=== PATIENT | female | born 1955 | race Caucasian/White ===

== ENCOUNTER 2021-07-18 10:12 | Emergency (ER) | payer OTHER ==
--- OUTSIDE RECORDS SUMMARY | 2021-07-18 10:15 | XMS REPORT | Continuity of Care Document ---
:1955 Author Organization [facility] t Address [facility] [address] [place] [address] Care Team Providers Name Role Phone JAVI Attending Clinician Unavailable MD WANDA CALDWELL Attending Clinician Unavailable JAVI Admitting Clinician Unavailable MD WANDA CALDWELL Admitting Clinician Unavailable Problems This patient has no known problems. Allergies, Adverse Reactions, Alerts This patient has no known allergies or adverse reactions. Medications This patient has no known medications. Procedures This patient has no known procedures. Encounters Start End Encounter Admission Attending Care Care Encounter Source Date/Time Date/Time Type Type Clinicians Facility Department ID 2020-07-20 2020-07-20 Outpatient [facility] [id number] [place] 00:00:00 00:00:00 TL [address] 2020-06-03 2020-06-03 Outpatient [facility] [id number] [place] 00:00:00 00:00:00 TL [address] 2020-06-01 2020-06-01 Outpatient [facility] [id number] [place] 00:00:00 00:00:00 TL [address] 2020-06-01 2020-06-01 Outpatient [facility] [id number] [place] 00:00:00 00:00:00 TL [address] 2020-05-19 2020-05-19 Outpatient [facility] [id number] [place] 00:00:00 00:00:00 TL [address] 2020-05-19 2020-05-19 Outpatient [facility] [id number] [place] 00:00:00 00:00:[address] Results Test Description Test Time Test Comments Results Result Comments Source SARS-CoV-2 (COVID-19) RNA [Presence] in Respiratory sp ecimen by 2020-06-01 22:55:03 AMRITA with probe detection Test Item Value Reference Range Interpretation Comme nts SARS-CoV-2 (COVID-19) RNA [Presence] in Respiratory Not detected No t-Detected specimen by AMRITA with probe detection (test code = 54583-5)
[2021-07-18] MEDS ORDERED: NA CHLORIDE 0.9% 1,000 ML ONE (11:57)
[2021-07-18] MEDS ORDERED: METHYLPREDNISOLONE 125 MG INJ ONE (11:57)
[2021-07-18] MEDS ORDERED: ACETAMINOPHEN 325 MG TABLET ONE (11:57)
[2021-07-18 12:14] LABS: Absolute Lymphocytes (CBC) 0.7 K/uL (0.7-4.9); Lymphocytes % 24.8 % (15.3-44.8); MPV 7.3 fL (7.6-11.3); RBC Red Blood Cell Count 5.05 M/uL (3.86-4.86)
--- NOTE | 2021-07-18 12:23 | RAD REPORT ---
EXAM DESCRIPTION: RAD - Chest Single View - 07/18/2021 12:18 pm CLINICAL HISTORY: Cough;Dyspnea COMPARISON: CHEST SINGLE VIEW dated 12/10/2014; CHEST PA AND LAT 2 VIEW dated 10/24/2013 FINDINGS: Lines: None. Lungs: Patchy airspace disease bilaterally, left greater than right. Pleural: No significant pleural effusions or pneumothorax. Cardiac: The heart size is within normal limits. Bones: No acute fractures. Other: IMPRESSION: Patchy bilateral airspace disease concerning for multifocal pneumonia, including Covid-1 9.
[2021-07-18 12:42] LABS: BUN Blood Urea Nitrogen 12 mg/dL (7-18); Bicarbonate 30 mmol/L (21-32); Ferritin 216.7 ng/mL (8-388); Glucose Level 94 mg/dL (74-106); Potassium 3.4 mmol/L (3.5-5.1); Sodium Level 137 mmol/L (136-145); Troponin (Emerg Dept Use Only) < 0.02 ng/mL (0.0-0.045)
[2021-07-18 13:43] LABS: Blood Morphology Comment NOT SEEN (NOT SEEN); Platelet Estimate ADEQ
[2021-07-18 13:44] LABS: Urine Blood Negative (Negative); Urine Glucose Negative (Negative); Urine Protein Negative (Negative); Urine Specific Gravity 1.015 (1.005-1.030)
--- NOTE | 2021-07-18 14:17 | EDPHYS ---
Physician Documentation [facility] Name: Hayley Landon Age: 66 yrs Sex: Female : 1955 Arrival Date: 07/18/2021 Time: 10:14 Bed 6 Private MD: Nestor Mcclellan T ED Physician Pablo Mcnally HPI: 07/18 11:26 This 66 yrs old Female presents to ER via Ambulatory with complaints of Shortness Of rn Breath - covid+. 11:26 The patient has shortness of breath at rest, with light activity. Onset: The rn symptoms/episode began/occurred 10 day(s) ago. Duration: The symptoms are intermittent. The patient's shortness of breath is aggravated by exertion, light activity. Associated signs and symptoms: Pertinent positives: productive cough, fever, Pertinent negatives: hemoptysis. Severity of symptoms: At their worst the symptoms were moderate in the emergency department the symptoms are unchanged. The patient has not experienced similar symptoms in the past. The patient has been recently seen by a physician:. Patient reports cough and shortness of breath for 10 days. Is Covid positive. Not Covid vaccinated. Reports mild shortness of breath with weakness and malaise. Also having diarrhea that is nonbloody. No history of DVT or PE.. Historical: - Allergies: 11:08 PENICILLINS; ll1 11:08 c cor; ll1 - PMHx: 11:08 Hypertension; ll1 - PSHx: 11:08 back SX-fusion; ll1 - Immunization history:: Client reports receiving the 2nd dose of the Covid vaccine. - Social history:: Smoking status: Patient denies any tobacco usage or history of. - Family history:: not pertinent. - Hospitalizations: : No recent hospitalization is reported. ROS: 11:26 Constitutional: Positive for fever and chills, positive for weight loss Eyes: Negative rn for injury, pain, redness, and discharge, ENT: Negative for injury, pain Neck: Negative for injury, pain, and swelling, Cardiovascular: Negative for chest pain, palpitations, and edema, Respiratory: Positive for cough and shortness of breath Abdomen/GI: Positive for diarrhea, negative for abdominal pain MS/Extremity: Negative for injury and deformity, Skin: Negative for injury, rash, and discoloration, Neuro: Positive for headache and generalized weakness Exam: 11:28 Constitutional: This is a well developed, well nourished patient who is awake, alert, rn and in no acute distress. Head/Face: Normocephalic, atraumatic. Eyes: Periorbital areas with no swelling, redness, or edema. ENT: No stridor Cardiovascular: Regular rate and rhythm. No pulse deficits. Respiratory: Speaking full sentences, unlabored. No increased work of breathing, no retractions or nasal flaring. Abdomen/GI: Soft, non-tender Skin: Warm, dry MS/ Extremity: Pulses equal, no cyanosis. Neurovascular intact. Full, normal range of motion. Equal circumference. Neuro: Awake and alert, GCS 15 12:18 ECG was reviewed by the Attending Physician. rn Vital Signs: 11:06 BP 190 / 85; Pulse 85; Resp 18; Temp 100.5; Pulse Ox 97% ; Weight 61.69 kg; Height 5 ll1 ft. 2 in. (157.48 cm); Pain 0/10; 12:24 BP 163 / 76; Pulse 86; Resp 17; Pulse Ox 99% on R/A; bp 13:28 BP 163 / 76; Pulse 82; Resp 23; Pulse Ox 94% on R/A; bp 15:15 BP 177 / 75; Pulse 80; Resp 18; Temp 98.6(O); Pulse Ox 99% on R/A; Pain 0/10; jh6 11:06 Body Mass Index 24.87 (61.69 kg, 157.48 cm) ll1 MDM: 11:10 Patient medically screened. rn 14:14 Differential diagnosis: Bronchitis pneumonia, Pneumothorax pulmonary edema, Pulmonary rn Embolism Sepsis covid. Data reviewed: vital signs, nurses notes, lab test result(s), EKG, radiologic studies, plain films, and as a result, I will discharge patient. Data interpreted: Pulse oximetry: on room air is 94 %. Interpretation: acceptable. Counseling: I had a detailed discussion with the patient and/or guardian regarding: the historical points, exam findings, and any diagnostic results supporting the discharge/admit diagnosis, lab results, radiology results, the need for outpatient follow up, to return to the emergency department if symptoms worsen or persist or if there are any questions or concerns that arise at home. Response to treatment: the patient's symptoms have mildly improved after treatment, and as a result, I will discharge patient. Special discussion: I discussed with the patient/guardian in detail that at this point there is no indication for admission to the hospital. It is understood, however, that if the symptoms persist or worsen the patient needs to return immediately for re-evaluation. ED course: No oxygen requirement here, ambulatory to bathroom without dififculty, no indication for emergent admission, will dc home with steroids and zithromax with return precautions. Recommend Vitamin D and NAC. . 07/18 11:22 Order name: BMP rn 07/18 11:22 Order name: Blood Culture Adult (2) rn 07/18 11:22 Order name: C-Reactive Protein rn 07/18 11:22 Order name: CBC with Diff; Complete Time: 14:00 rn 07/18 11:22 Order name: D-Dimer; Complete Time: 12:43 rn 07/18 11:22 Order name: Ferritin rn 07/18 11:22 Order name: Flu rn 07/18 11:22 Order name: Lactate; Complete Time: 12:43 rn 07/18 11:22 Order name: Procalcitonin; Complete Time: 13:25 rn 07/18 11:22 Order name: Troponin (emerg Dept Use Only); Complete Time: 12:43 rn 07/18 11:23 Order name: Basic Metabolic Panel; Complete Time: 12:43 EDMS 07/18 11:23 Order name: C-Reactive Protein; Complete Time: 12:43 EDMS 07/18 11:23 Order name: Ferritin; Complete Time: 12:43 EDMS 07/18 13:42 Order name: Manual Differential; Complete Time: 14:00 EDOH 07/18 11:22 Order name: CXR XRAY; Complete Time: 12:43 rn 07/18 11:22 Order name: EKG; Complete Time: 11:23 rn 07/18 11:22 Order name: Cardiac monitoring; Complete Time: 11:52 rn 07/18 11:22 Order name: Droplet/Contact Precautions; Complete Time: 11:52 rn 07/18 11:22 Order name: EKG - Nurse/Tech; Complete Time: 12:23 rn 07/18 11:22 Order name: IV Start; Complete Time: 12:23 rn 07/18 11:22 Order name: Labs collected and sent; Complete Time: 12:23 rn 07/18 11:22 Order name: O2 Per Protocol; Complete Time: 11:52 rn 07/18 11:22 Order name: O2 Sat Monitoring; Complete Time: 11:52 rn 07/18 11:22 Order name: Urine Dipstick-Ancillary (obtain specimen); Complete Time: 13:58 rn 07/18 13:44 Order name: Urine Dipstick-Ancillary; Complete Time: 14:00 EDMS EC:18 Rate is 80 beats/min. Rhythm is irregular. QRS [place] is Normal. AL interval is normal. rn QRS interval is normal. QT interval is normal. No Q waves. T waves are Normal. No ST changes noted. Clinical impression: NSR w/ Non-specific ST/T Changes. Interpreted by me. Reviewed by me. Administered Medications: 12:00 Drug: SOLU-Medrol (methylPrednisoLONE) 125 mg Route: IVP; Site: right antecubital; bp 12:30 Follow up: Response: No adverse reaction 6 12:00 Drug: NS 0.9% 1000 ml Route: IV; Rate: 1000 ml; Site: right antecubital; bp 15:00 Follow up: IV Status: Completed infusion 6 12:00 Drug: Tylenol 650 mg Route: PO; bp 12:30 Follow up: Response: No adverse reaction [facility] Disposition Summary: 07/18/21 14:16 Discharge Ordered Location: Home rn Problem: an ongoing problem rn Symptoms: have improved rn Condition: Stable rn Diagnosis - Pneumonia due to SARS-associated coronavirus rn - Dehydration rn Followup: rn - With: Private Physician - When: As needed - Reason: Recheck today's complaints, Re-evaluation by your physician Discharge Instructions: - Discharge Summary Sheet rn - Dehydration, Adult rn - COVID-19 rn - COVID-19 Frequently Asked Questions rn - 10 Things You Can Do to Manage Your COVID-19 Symptoms at Home - [facility] rn Forms: - Medication Reconciliation Form rn - Thank You Letter rn - Antibiotic 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 Day 2, 3, 4 , 5 take one (1) tablet once daily.; 6 tablet; Refills: 0, Product Selection Permitted Signatures: Dispatcher [employer] EDOH Pablo Mcnally MD MD rn Peltier, Rakesh RN RN Brittany Stewart RN RN 1 Mila Sanchez RN jh6 Corrections: (The following items were deleted from the chart) 11:30 11:28 Constitutional: This is a well developed, well nourished patient who is awake, rn alert, and in no acute distress. Head/Face: Normocephalic, atraumatic. Eyes: Periorbital areas with no swelling, redness, or edema. ENT: No stridor rn 11:35 10:52 Chest Pa And Lat (2 Views)+RAD.[email or web address].[email or web address] ordered. EDMS EDMS 13:29 11:22 Bharat ordered. jose bp
--- NOTE | 2021-07-18 14:17 | ER ---
Nurse's Notes [facility] Name: Hayley Landon Age: 66 yrs Sex: Female : 1955 Arrival Date: 07/18/2021 Time: 10:14 Bed 6 Private MD: Nestor Mcclellan T Diagnosis: Pneumonia due to SARS-associated coronavirus;Dehydration Presentation: 07/18 11:06 Chief complaint: Patient states: Has had covid for 10 days. Oxygen 81% last night, ll1 resolved with meds and repositioning. Coronavirus screen: Vaccine status: Patient reports being unvaccinated. Client denies travel out of the [place] in the last 14 days. congestion, cough unrelated to allergies, difficulty breathing, fatigue, fever, headache, loss of taste or smell, Client presents with at least one sign or symptom that may indicate coronavirus-19. Standard/surgical mask placed on the client. Ebola Screen: Patient denies travel to an Ebola-affected area in the 21 days before illness onset. Initial Sepsis Screen: Does the patient meet any 2 criteria? No. Patient's initial sepsis screen is negative. Does the patient have a suspected source of infection? Yes: Productive cough/pneumonia. Risk Assessment: Do you want to hurt yourself or someone else? Patient reports no desire to harm self or others. Onset of symptoms was July 09, 2021. 11:06 Method Of Arrival: Ambulatory [facility] 11:06 Acuity: OCTAVIA 3 ll1 Triage Assessment: 15:17 General: Appears. jh6 15:17 General: Appears in no apparent distress. comfortable, well groomed, Behavior is calm, jh6 cooperative. Pain: Denies pain. Neuro: No deficits noted. Respiratory: No deficits noted. Reports cough that is non-productive, dry, Airway is patent Trachea midline Respiratory effort is even, unlabored, relaxed, Respiratory pattern is regular, Onset: The symptoms/episode began/occurred gradually, the patient has moderate shortness of breath. Historical: - Allergies: 11:08 PENICILLINS; ll1 11:08 c cor; ll1 - PMHx: 11:08 Hypertension; ll1 - PSHx: 11:08 back SX-fusion; ll1 - Immunization history:: Client reports receiving the 2nd dose of the Covid vaccine. - Social history:: Smoking status: Patient denies any tobacco usage or history of. - Family history:: not pertinent. - Hospitalizations: : No recent hospitalization is reported. Screenin:23 Abuse screen: Denies threats or abuse. Denies injuries from another. Nutritional bp screening: No deficits noted. Tuberculosis screening: No symptoms or risk factors identified. Fall Risk None identified. Assessment: 11:10 General: SEE TRIAGE NOTE. Pain: Denies pain. Cardiovascular: Rhythm is sinus rhythm. bp Respiratory: Airway is patent Respiratory effort is even, unlabored, Breath sounds are coarse. 13:29 Reassessment: No changes from previously documented assessment. Patient and/or family bp updated on plan of care and expected duration. Pain level reassessed. Vital Signs: 11:06 BP 190 / 85; Pulse 85; Resp 18; Temp 100.5; Pulse Ox 97% ; Weight 61.69 kg; Height 5 ll1 ft. 2 in. (157.48 cm); Pain 0/10; 12:24 BP 163 / 76; Pulse 86; Resp 17; Pulse Ox 99% on R/A; bp 13:28 BP 163 / 76; Pulse 82; Resp 23; Pulse Ox 94% on R/A; bp 15:15 BP 177 / 75; Pulse 80; Resp 18; Temp 98.6(O); Pulse Ox 99% on R/A; Pain 0/10; jh6 11:06 Body Mass Index 24.87 (61.69 kg, 157.48 cm) ll1 ED Course: 10:14 Patient arrived in ED. as 10:14 Nestor Mcclellan MD is Private Physician. as 11:08 Triage completed. ll1 11:09 Arm band placed on. ll1 11:10 Pablo Mcnally MD is Attending Physician. rn 11:10 Patient placed in an exam room, on a stretcher. ll1 11:26 Rakesh Alcantar, ISABELLA is Primary Nurse. bp 12:00 Inserted saline lock: 20 gauge in right antecubital area, using aseptic technique. bp Blood collected. 12:18 CXR XRAY In Process Unspecified. EDMS 12:23 Patient has correct armband on for positive identification. Bed in low position. Call bp light in reach. Side rails up X2. Adult w/ patient. 15:15 IV discontinued, intact, bleeding controlled, No redness/swelling at site. Pressure jh6 dressing applied. 15:16 No provider procedures requiring assistance completed. 6 Administered Medications: 12:00 Drug: SOLU-Medrol (methylPrednisoLONE) 125 mg Route: IVP; Site: right antecubital; bp 12:30 Follow up: Response: No adverse reaction [facility] 12:00 Drug: NS 0.9% 1000 ml Route: IV; Rate: 1000 ml; Site: right antecubital; bp 15:00 Follow up: IV Status: Completed infusion 6 12:00 Drug: Tylenol 650 mg Route: PO; bp 12:30 Follow up: Response: No adverse reaction [facility] Outcome: 14:16 Discharge ordered by . rn 15:16 Discharged to home ambulatory. [facility] 15:16 Condition: improved 15:16 Discharge instructions given to patient, significant other, Instructed on discharge instructions, follow up and referral plans. Demonstrated understanding of instructions, follow-up care, medications, Prescriptions given X 2. 15:20 Patient left the ED. 6 Signatures: Dispatcher [employer] EDMS Gabriella Abraham Roman, MD MD rn Peltier, Brian, RN RN Brittany Stewart RN RN [facility] Mila Sanchez RN RN 6
[2021-07-18 15:31] VITALS: BP 177/75; TEMP 98.6; O2SAT 99
[2021-07-18] MEDS ORDERED: FUROSEMIDE 40 MG/4 ML VIAL ONE (16:51)
--- NOTE | 2021-07-19 11:26 | EKG ---
Test Date: 2021-07-18 Test Time: 12:14:31 Breast Splitter: BP MEASUREMENT RESULTS: Intervals: Rate: 80 AK: 130 QRSD: 88 QT: 364 QTc: 419 [place]: P: 5 AK: 130 QRS: 31 T: 39 INTERPRETIVE STATEMENTS: Sinus rhythm with premature supraventricular complexes Nonspecific ST abnormality Abnormal ECG Compared to ECG 08/16/2017 11:23:26 Atrial premature complex(es) now present ST (T wave) deviation now present Electronically Signed On 07-19-21 11:23:34 RULES EXAMINER by Alfonso Weiss
== END 2021-07-18 15:20 | disposition home or self-care (01) ==
LOC: ER 10:12
DX: U07.1 COVID-19 (principal); J12.82 Pneumonia due to coronavirus disease 2019; I10 Essential (primary) hypertension; Z88.0 Allergy status to penicillin; Z88.8 Allergy status to other drugs, medicaments and biological substances
CPT/HCPCS: 96361; 93005; 87040 ×2; 85025; 80048; 36415; 85379; 83605; 81003; 84484; 82728; 84145; 86140; 87804 ×2; 71045; 96374; 99284; J1940; J7030; J2930

== ENCOUNTER 2021-08-19 07:33 | Emergency (ER) | payer OTHER ==
--- OUTSIDE RECORDS SUMMARY | 2021-08-19 07:35 | XMS REPORT | Continuity of Care Document ---
:1955 [address] [facility] t Address [facility] [address] [place] [address] Care Team Providers Name Role Phone JAVI Attending Clinician Unavailable MD WANDA CALDWELL Attending Clinician Unavailable JAVI Admitting Clinician Unavailable MD WANAD CALDWELL Admitting Clinician Unavailable Problems This patient has no known problems. Allergies, Adverse Reactions, Alerts This patient has no known allergies or adverse reactions. Medications This patient has no known medications. Procedures This patient has no known procedures. Encounters Start End Encounter Admission Attending Care Care Encounter Source Date/Time Date/Time Type Type Clinicians Facility Department ID 2020-07-20 2020-07-20 Outpatient [facility] [id number] [place] 00:00:00 00:00:00 TL [address] 2020-06-03 2020-06-03 Outpatient [facility] [id number] [place] 00:00:00 00:00:00 TL [address] 2020-06-01 2020-06-01 Outpatient [facility] [id number] [place] 00:00:00 00:00:00 TL [address] 2020-06-01 2020-06-01 Outpatient [facility] [id number] [place] 00:00:00 00:00:00 TL [address] 2020-05-19 2020-05-19 Outpatient [facility] [id number] [id number] [place] 00:00:00 00:00:00 TL [address] 2020-05-19 2020-05-19 Outpatient [facility] [id number] [place] 00:00:00 00:00:00 TL [address] Results Test Description Test Time Test Comments Results Result Comments Source SARS-CoV-2 (COVID-19) RNA [Presence] in Respiratory sp ecimen by 2020-06-01 22:55:03 AMRITA with probe detection Test Item Value Reference Range Interpretation Comme nts SARS-CoV-2 (COVID-19) RNA [Presence] in Respiratory Not detected No t-Detected specimen by AMRITA with probe detection (test code = 08406-3)
[2021-08-19] MEDS ORDERED: METHYLPREDNISOLONE 125 MG INJ ONE (07:46)
[2021-08-19] MEDS ORDERED: FAMOTIDINE 20 MG TAB ONE (07:46)
--- NOTE | 2021-08-19 08:01 | EDPHYS ---
Physician Documentation [facility] Name: Hayley Landon Age: 66 yrs Sex: Female : 1955 Arrival Date: 08/19/2021 Time: 07:34 Bed Waiting Private MD: Nestor Mcclellan T ED Physician Pablo Mcnally HPI: 08/19 07:45 This 66 yrs old Female presents to ER via Ambulatory with complaints of Allergic kb Reaction. 07:45 The patient presents with itching. Onset: The symptoms/episode began/occurred 5 day(s) kb ago. Associated signs and symptoms: Pertinent positives: rash. Possible causes: shellfish. At home the patient or guardian has treated the symptoms with Benadryl, steroids. Severity of symptoms: At their worst the symptoms were moderate in the emergency department the symptoms are unchanged. The patient has not experienced similar symptoms in the past. The patient has not recently seen a physician. Pt reports she ate fish on Saturday, had hives on Saturday. Was seen by Dr Mcclellan on Saturday for another issue and was prescribed Decadron for the hives. States she has been on decadron before and it irritated her stomach. States she ate a shrimp on Saturday night and developed swelling to her lips that resolved with benadryl. States the decadron is upsetting her stomach so she called Dr Mcclellan's office yesterday to get it changed to prednisone, but she did not get a response from him because he was out of the office. . Historical: - Allergies: 07:40 PENICILLINS; [facility] 07:40 c cor; 5 - PMHx: 07:40 Hypertension; [facility] - PSHx: 07:40 back SX-fusion; [facility] - Immunization history:: Adult Immunizations up to date. - Social history:: Smoking status: Patient denies any tobacco usage or history of. ROS: 07:44 Constitutional: Negative for fever, chills, and weight loss. kb 07:44 Skin: Positive for rash, diffusely. 07:44 All other systems are negative. Exam: 07:44 Constitutional: This is a well developed, well nourished patient who is awake, alert, kb and in no acute distress. Head/Face: Normocephalic, atraumatic. ENT: Moist Mucous membranes Cardiovascular: Regular rate and rhythm with a normal S1 and S2. No gallops, murmurs, or rubs. No pulse deficits. Respiratory: Respirations even and unlabored. No increased work of breathing. Talking in full sentences MS/ Extremity: Pulses equal, no cyanosis. Neurovascular intact. Full, normal range of motion. Neuro: Awake and alert, GCS 15, oriented to person, place, time, and situation. Moves all extremities. Normal gait. Psych: Awake, alert, with orientation to person, place and time. Behavior, mood, and affect are within normal limits. 07:44 Skin: consistent with dermatitis. Vital Signs: 07:37 BP 173 / 95; Pulse 114; Resp 18; Temp 98.9; Pulse Ox 95% ; Weight 60.78 kg; Height 5 jh5 ft. 4 in. (162.56 cm); 07:37 Body Mass Index 23.00 (60.78 kg, 162.56 cm) 5 MDM: 07:44 Patient medically screened. 07:44 Data reviewed: vital signs, nurses notes. Data interpreted: Pulse oximetry: on room air kb is 95 %. Interpretation: normal. Counseling: I had a detailed discussion with the patient and/or guardian regarding: the historical points, exam findings, and any diagnostic results supporting the discharge/admit diagnosis, the need for outpatient follow up, a family practitioner, to return to the emergency department if symptoms worsen or persist or if there are any questions or concerns that arise at home. Administered Medications: 07:49 Drug: SOLU-Medrol (methylPREDNISolone sodium succinate) 125 mg Route: IM; Site: right [facility] gluteus; 07:50 Drug: Pepcid (famotidine) 20 mg Route: PO; [facility] Disposition: 09:36 Co-signature as Attending Physician, Pablo Mcnally MD. rn Disposition Summary: 08/19/21 08:00 Discharge Ordered Location: Home Condition: Stable Problem: new tw5 Symptoms: have improved tw5 Diagnosis - Rash and other nonspecific skin eruption kb Followup: kb - With: Emergency Department - When: As needed - Reason: Worsening of condition Followup: kb - With: Nestor Mcclellan MD - When: 2 - 3 days - Reason: Recheck today's complaints, Continuance of care, Re-evaluation by your physician Discharge Instructions: - Discharge Summary Sheet kb - Rash, Adult, [id number] kb - Hives, [id number] kb Forms: - Medication Reconciliation Form kb - Thank You Letter kb - Antibiotic Education kb - Prescription Opioid Use kb Prescriptions: - Pepcid 20 mg Oral Tablet - take 1 tablet by ORAL route every 12 hours for 5 days; 10 tablet; Refills: 0, kb Product Selection Permitted - Prednisone 20 mg Oral Tablet - take 1 tablet by ORAL route once daily for 5 days; 5 tablet; Refills: 0, kb Product Selection Permitted Signatures: Sherlyn Khan, KNITTER OPERATOR-C KNITTER OPERATOR-Ckb Pablo Mcnally MD MD rn Wood, Tiffany tw5 Nery Castro RN RN jh5 Corrections: (The following items were deleted from the chart) 08:01 08:00 Allergic urticaria kb kb
--- NOTE | 2021-08-19 08:01 | ER ---
Nurse's Notes [facility] Name: Hayley Landon Age: 66 yrs Sex: Female : 1955 Arrival Date: 08/19/2021 Time: 07:34 Bed Waiting Private MD: Nestor Mcclellan T Diagnosis: Rash and other nonspecific skin eruption Presentation: 08/19 07:37 Chief complaint: Patient states: allergic reaction since Saturday; getting better then jh5 worse. cant take the medicine (Dexamethazone) messing up her stomach, she cant take it anymore. Pt states she is itching. Coronavirus screen: Vaccine status: Patient reports being unvaccinated. Client denies travel out of the [place] in the last 14 days. At this time, the client does not indicate any symptoms associated with coronavirus-19. Ebola Screen: Patient negative for fever greater than or equal to 101.5 degrees Fahrenheit, and additional compatible Ebola Virus Disease symptoms Patient denies exposure to infectious person. Patient denies travel to an Ebola-affected area in the 21 days before illness onset. Onset: The symptoms/episode began/occurred last week. Anaphylaxis evaluation, no signs or symptoms of anaphylaxis were noted. Initial Sepsis Screen: Does the patient meet any 2 criteria? No. Patient's initial sepsis screen is negative. Does the patient have a suspected source of infection? No. Patient's initial sepsis screen is negative. Risk Assessment: Do you want to hurt yourself or someone else? Patient reports no desire to harm self or others. Onset of symptoms was August 14, 2021. 07:37 Method Of Arrival: Ambulatory [facility] 07:37 Acuity: OCTAVIA 4 5 Triage Assessment: 07:40 General: Appears in no apparent distress. slender, well groomed, well developed, well jh5 nourished, Behavior is calm, cooperative, appropriate for age. Pain: Denies pain. Historical: - Allergies: 07:40 PENICILLINS; 5 07:40 c cor; jh5 - PMHx: 07:40 Hypertension; jh5 - PSHx: 07:40 back SX-fusion; jh5 - Immunization history:: Adult Immunizations up to date. - Social history:: Smoking status: Patient denies any tobacco usage or history of. Screenin:41 Abuse screen: Denies threats or abuse. Denies injuries from another. Nutritional [facility] screening: No deficits noted. Tuberculosis screening: No symptoms or risk factors identified. Fall Risk None identified. Assessment: 07:41 Respiratory: Airway is patent Respiratory effort is even, unlabored, Breath sounds are [facility] clear. Vital Signs: 07:37 BP 173 / 95; Pulse 114; Resp 18; Temp 98.9; Pulse Ox 95% ; Weight 60.78 kg; Height 5 5 ft. 4 in. (162.56 cm); 07:37 Body Mass Index 23.00 (60.78 kg, 162.56 cm) [facility] ED Course: 07:34 Patient arrived in ED. am2 07:34 Nestor Mcclellan MD is Private Physician. am2 07:35 Sherlyn Khan FNP-C is [facility]. kb 07:35 Pablo Mcnally MD is Attending Physician. kb 07:40 Triage completed. 5 07:40 Arm band placed on left wrist. 5 07:41 Patient has correct armband on for positive identification. 5 07:41 No provider procedures requiring assistance completed. 5 08:00 Nestor Mcclellan MD is Referral Physician. kb Administered Medications: 07:49 Drug: SOLU-Medrol (methylPREDNISolone sodium succinate) 125 mg Route: IM; Site: right [facility] gluteus; 07:50 Drug: Pepcid (famotidine) 20 mg Route: PO; [facility] Outcome: 08:00 Discharge ordered by . kb 08:04 Patient left the ED. 5 Signatures: Sherlyn Khan FNP-C FNP-Ckb Moreno, Amanda 2 Marni Hernandez 5 Nery Castro, RN RN 5
[2021-08-19 08:08] VITALS: BP 173/95; TEMP 98.9; O2SAT 95
== END 2021-08-19 08:04 | disposition home or self-care (01) ==
LOC: ER 07:33
DX: R21 Rash and other nonspecific skin eruption (principal); Z88.0 Allergy status to penicillin
CPT/HCPCS: 96372; 99282; J2930

== ENCOUNTER 2021-11-29 07:48 | Emergency (ER) | payer OTHER ==
--- OUTSIDE RECORDS SUMMARY | 2021-11-29 07:51 | XMS REPORT | Continuity of Care Document ---
:1955 Author Organization [facility] Address [address] [place] [address] [address] [place] [address] Care Team Providers Name Role Phone GIST Attending Clinician Unavailable MD WANDA CALDWELL Attending Clinician Unavailable GIST Admitting Clinician Unavailable MD WANDA CALDWELL Admitting [...] Clinicians Facility Department ID 2020-07-20 2020-07-20 Outpatient [facility] [id number] [facility] 00:00:00 00:00:00 TL [address] 2020-06-03 2020-06-03 Outpatient [facility] [id number] [facility] 00:00:00 00:00:00 TL [address] 2020-06-01 2020-06-01 Outpatient [facility] [id number] [facility] 00:00:00 00:00:00 TL [address] 2020-06-01 2020-06-01 Outpatient [facility] [id number] [facility] 00:00:00 00:00:00 TL [address] 2020-05-19 2020-05-19 Outpatient [facility] [id number] [facility] 00:00:00 00:00:00 TL [address] 2020-05-19 2020-05-19 Outpatient [facility] [id number] [facility] 00:00:00 00:00:[address] Results Test Description Test Time Test Comments Results Result Comments Source SARS-CoV-2 (COVID-19) RNA [Presence] in Respiratory sp ecimen by 2020-06-01 22:55:03 AMRITA with probe detection Test Item Value Reference Range Interpretation Comme nts SARS-CoV-2 (COVID-19) RNA [Presence] in Respiratory Not detected No t-Detected specimen by AMRITA with probe detection (test code = 32499-2)
--- NOTE | 2021-11-29 10:50 | RAD REPORT ---
EXAM DESCRIPTION: RAD - Knee Left 3 View - 11/29/2021 9:51 am CLINICAL HISTORY: Left knee pain status post injury FINDINGS: No acute fracture or dislocation is seen. Small bony/calcific density within the intercondylar notch may represent a loose body Edema is present the subcutaneous tissues. If patient continues have symptoms to suggest an occult fracture, ligamentous or meniscal injury then MRI would be recommended
--- NOTE | 2021-11-29 10:59 | ER ---
Nurse's Notes [facility] Name: Hayley Landon Age: 66 yrs Sex: Female : 1955 Arrival Date: 11/29/2021 Time: 07:51 Bed DIS2 Private MD: Nestor Mcclellan T Diagnosis: Contusion of left knee Presentation: 11/29 08:17 Chief complaint: Patient states: she fell yesterday on her left knee. patient presents ap3 with swelling and minor abrasions to her left knee. patient states her pain is currently 3/10 when sitting, however when she walks it goes up to an 8/10. Coronavirus screen: At this time, the client does not indicate any symptoms associated with coronavirus-19. Ebola Screen: No symptoms or risks identified at this time. Initial Sepsis Screen: Does the patient meet any 2 criteria? No. Patient's initial sepsis screen is negative. Does the patient have a suspected source of infection? No. Patient's initial sepsis screen is negative. Risk Assessment: Do you want to hurt yourself or someone else? Patient reports no desire to harm self or others. Onset of symptoms was November 28, 2021. 08:17 Method Of Arrival: Wheelchair ap3 08:17 Acuity: OCTAVIA 4 ap3 Triage Assessment: 08:21 General: Appears in no apparent distress. Behavior is calm, cooperative, appropriate ap3 for age. Pain: Complains of pain in left knee Pain currently is 3 out of 10 on a pain scale. at worst was 8 out of 10 on a pain scale. Pain began 1 day ago. Neuro: Level of Consciousness is awake, alert, obeys commands, Oriented to person, place, time, situation, Appropriate for age Speech is normal. Cardiovascular: Patient's skin is warm and dry. Respiratory: Airway is patent Respiratory effort is even, unlabored. Derm: Wound noted left knee. Historical: - Allergies: 08:20 c cor; ap3 08:20 PENICILLINS; ap3 08:20 Codeine; ap3 - PMHx: 08:20 Hypertension; ap3 - PSHx: 08:20 back SX-fusion; ap3 - Immunization history:: Client reports having NOT received the Covid vaccine. - Social history:: Smoking status: Patient denies any tobacco usage or history of. Screenin:22 Abuse screen: Denies threats or abuse. Nutritional screening: No deficits noted. ap3 Tuberculosis screening: No symptoms or risk factors identified. 11:22 Fall Risk Fall in past 12 months (25 points). ap3 Assessment: 11:00 General: Appears in no apparent distress. comfortable, Behavior is calm, cooperative. ss Neuro: Mast Agitation-Sedation Scale (RASS): 0 - Alert and Calm. Cardiovascular: Capillary refill < 3 seconds is brisk in bilateral fingers. Respiratory: Respiratory effort is even, unlabored, Respiratory pattern is regular, symmetrical. GI: No signs and/or symptoms were reported involving the gastrointestinal system. Derm: Skin is pink, warm \T\ dry. normal. Vital Signs: 08:17 BP 191 / 85; Pulse 88; Resp 16; Temp 98.3; Pulse Ox 99% on R/A; Weight 61.23 kg; Height ap3 5 ft. 2 in. (157.48 cm); 08:17 Body Mass Index 24.69 (61.23 kg, 157.48 cm) ap3 08:17 patient states she has white coat syndrome, blood pressure yesterday was 121/56 ap3 ED Course: 07:51 Patient arrived in ED. as 07:51 Nestor Mcclellan MD is Private Physician. as 08:03 Abdoul Urbina DO is Attending Physician. ms3 08:18 Zeus Gimenez PA is PHCP. cp 08:20 Triage completed. ap3 08:22 Arm band placed on left wrist. ap3 08:22 Patient has correct armband on for positive identification. ap3 09:51 XRAY Knee LEFT 3 view In Process Unspecified. EDMS 10:58 Kade Castle MD is Referral Physician. cp 11:10 Gibran wrap to left knee Knee immobilizer applied on left knee. mh5 11:16 Antoinette Johnson, ISABELLA is Primary Nurse. ss 11:21 No provider procedures requiring assistance completed. Patient did not have IV access ap3 during this emergency room visit. Administered Medications: No medications were administered Medication: 08:22 VIS not applicable for this client. ap3 Outcome: 10:59 Discharge ordered by . cp 11:21 Discharged to home via wheelchair, with crutches. ap3 11:21 Condition: good 11:21 Discharge instructions given to patient, family, Instructed on discharge instructions, follow up and referral plans. Demonstrated understanding of instructions, follow-up care. 11:22 Patient left the ED. ap3 Signatures: Dispatcher [employer] Gabriella Guillermo Shelby, RN RN Zeus Gimenez PA PA cp Martinez, Maria [facility] Arcelia Cronin RN RN ap3 Abdoul Urbina DO DO ms3
--- NOTE | 2021-11-29 10:59 | EDPHYS ---
Physician Documentation [facility] Name: Hayley Landon Age: 66 yrs Sex: Female : 1955 Arrival Date: 11/29/2021 Time: 07:51 Bed DIS2 Private MD: Nestor Mcclellan T ED Physician Abdoul Urbina HPI: 11/29 08:23 This 66 yrs old Female presents to ER via Wheelchair with complaints of Fall Injury, cp Knee Pain. 08:23 Details of fall: The patient fell from an upright position, while walking. Onset: The cp symptoms/episode began/occurred last night. Associated injuries: The patient sustained left knee, painful injury, swelling. 08:23 Severity of symptoms: in the emergency department the symptoms are unchanged, despite cp home interventions. 08:23 Patient reports taking tylenol for pain and declines any ibuprofen and/or narcotic pain cp meds at this time. Historical: - Allergies: 08:20 c cor; ap3 08:20 PENICILLINS; ap3 08:20 Codeine; ap3 - PMHx: 08:20 Hypertension; ap3 - PSHx: 08:20 back SX-fusion; ap3 - Immunization history:: Client reports having NOT received the Covid vaccine. - Social history:: Smoking status: Patient denies any tobacco usage or history of. ROS: 08:25 MS/extremity: Positive for pain, swelling, tenderness. cp 08:25 Constitutional: Negative for body aches, chills, fever, poor PO intake. cp 08:25 Neck: Negative for pain with movement, pain at rest, stiffness. cp 08:25 Cardiovascular: Negative for chest pain, palpitations. 08:25 Respiratory: Negative for cough, shortness of breath, wheezing. 08:25 Abdomen/GI: Negative for abdominal pain, nausea, vomiting, and diarrhea. 08:25 Back: Negative for pain at rest, pain with movement. 08:25 Neuro: Negative for altered mental status, headache, syncope, weakness. 08:25 All other systems are negative. Exam: 08:30 Constitutional: The patient appears in no acute distress, alert, awake, non-toxic, well cp developed, well nourished, uncomfortable. 08:30 Head/Face: Normocephalic, atraumatic. cp 08:30 Neck: ROM/movement: is normal, is supple, without pain, no range of motions limitations. 08:30 Chest/axilla: Inspection: normal. 08:30 Cardiovascular: Rate: normal. 08:30 Respiratory: the patient does not display signs of respiratory distress, Respirations: normal, no use of accessory muscles, no retractions, labored breathing, is not present. 08:30 Musculoskeletal/extremity: Extremities: noted in the left knee: pain, swelling, tenderness along medial and lateral joint line, ROM: limited passive range of motion due to pain, in the left knee, Perfusion: the extremity is normally perfused throughout, the left leg Sensation intact. overlying skin, warm, dry , intact of left knee. Vital Signs: 08:17 BP 191 / 85; Pulse 88; Resp 16; Temp 98.3; Pulse Ox 99% on R/A; Weight 61.23 kg; Height ap3 5 ft. 2 in. (157.48 cm); 08:17 Body Mass Index 24.69 (61.23 kg, 157.48 cm) ap3 08:17 patient states she has white coat syndrome, blood pressure yesterday was 121/56 ap3 Procedures: 11:00 Splinting: Splint applied to left knee using knee immobilizer, applied by nurse. cp Examined by me, post splint application: neurovascular intact, Patient tolerated well. MDM: 08:03 Patient medically screened. ms3 08:30 Differential diagnosis: contusion, fracture, sprain, strain, dislocation, ligament cp injury, meniscus injury. 10:59 Data reviewed: vital signs, nurses notes, radiologic studies, plain films. cp 10:59 Test interpretation: by ED physician or midlevel provider: plain radiologic studies. cp Counseling: I had a detailed discussion with the patient and/or guardian regarding: the historical points, exam findings, and any diagnostic results supporting the discharge/admit diagnosis, radiology results, the need for outpatient follow up, a orthopedic surgeon, to return to the emergency department if symptoms worsen or persist or if there are any questions or concerns that arise at home. Response to treatment: the patient's symptoms have mildly improved after treatment, and as a result, I will discharge patient. 11/29 08:22 Order name: XRAY Knee LEFT 3 view cp 11/29 10:57 Order name: Knee Immobilizer; Complete Time: 11:10 cp 11/29 10:58 Order name: Gibran wrap-joint; Complete Time: 11:09 cp Administered Medications: No medications were administered Disposition: 16:07 Co-signature as Attending Physician, Abdoul Urbina DO I was immediately available on-site ms3 in the Emergency Department for consultation in the care of the patient.. Disposition Summary: 11/29/21 10:59 Discharge Ordered Location: Home cp Problem: new cp Symptoms: have improved cp Condition: Stable cp Diagnosis - Contusion of left knee cp Followup: cp - With: Kade Castle MD - When: 2 - 3 days - Reason: Recheck today's complaints Discharge Instructions: - Discharge Summary Sheet cp - How to Use a Knee Immobilizer cp - Acute Knee Pain, Adult cp Forms: - Medication Reconciliation Form cp - Thank You Letter cp - Antibiotic Education cp - Prescription Opioid Use cp Signatures: Dispatcher [employer] EDMS Zeus Gimenez PA PA cp Prokisch, Amanda RN RN ap3 Abdoul Urbina DO DO ms3 Corrections: (The following items were deleted from the chart) 11/30 01:41 11/29 08:30 Back: pain, that is moderate, of the right flank, cp cp
[2021-11-29 11:33] VITALS: BP 191/85; TEMP 98.3; O2SAT 99
== END 2021-11-29 11:22 | disposition home or self-care (01) ==
LOC: ER 07:48
DX: S80.02XA Contusion of left knee, initial encounter (principal); W19.XXXA Unspecified fall, initial encounter; Y93.01 Activity, walking, marching and hiking; I10 Essential (primary) hypertension; Z88.0 Allergy status to penicillin; Z88.1 Allergy status to other antibiotic agents; Z88.5 Allergy status to narcotic agent
CPT/HCPCS: 99283

== ENCOUNTER 2023-05-04 12:27 | Emergency (ER) | payer OTHER ==
--- OUTSIDE RECORDS SUMMARY | 2023-05-04 12:34 | XMS REPORT | Continuity of Care Document ---
:1955 Author Organization [facility] t Address [address] [place] [address] [address] [place] [address] Care Team Providers Name Role Phone Asked, No Pcp Primary Care Physician Unavailable Don Attending Clinician Unavailable Wilfred London Attending Clinician [phone] Wilfred London Attending Clinician Unavailable TL CALDWELL Attending Clinician Unavailable MD TL CALDWELL Attending Clinician Unavailable Don Admitting Clinician Unavailable Wilfred London Admitting Clinician Unavailable TL CALDWELL Admitting Clinician Unavailable MD TL CALDWELL Admitting Clinician Unavailable Payers Payer Name Policy Type Policy Number Effective Date Expiration Date Shaye PEGUERO (MEDICARE [id number] 2021 REPLACEMENT PPO) 00:00:00 Problems Condition Condition Condition Status Onset Resolution Last Treating Co mments Source Name Details Category Date Date Treatment Clinician Date Closed Closed Problem Active Lizabeth fracture Fracture 5-25 Orthop e of left of Left 00:00: dic patella Patella 00 Sports Medicin e Acute tear Acute Tear Problem Active A zalea of medial of Medial 5-25 Orth ope meniscus Meniscus 00:00: dic of left of Left 00 Sports knee Knee Medicin e Pain of Pain of Problem Active Lizabeth left knee Left Knee 5-19 Orth ope joint Joint 00:00: dic 00 Sports Medicin e Acquired Acquired Problem Active Azale a trigger Trigger 8- Orthope finger Finger 00:00: dic 00 Sports Medicin e Mass of Mass of Problem Active 2014-07 Lizabeth body Body 1-13 Orthope structure Structure 00:00: dic 00 Sports Medicin e Closed Closed Problem Active Lizabeth fracture Fracture - Orthop e of distal of Distal 00:00: dic end of End of 00 Sports radius Radius Medicin e Allergies, Adverse Reactions, Alerts Allergy Allergy Status Severity Reaction(s) Onset Inactive Treating Comm ents Source Name Type Date Date Clinician Debbie Jordan Active GI 2019-07 Methodi ty to Intolerance 08-01 adverse 00:00: Hospita reaction 00 l s to drug Penicill Propensi Active Rash 2019-07 Method i in G ty to 08-01 adverse 00:00: Hospita reaction 00 l s to drug Penicill DA Active MO HIVES [facility] ins 02-12 [place] 00:00: Orthope 00 dic Hospita l cefaclor DA Active CA RASHES [facility] 02-12 [place] 00:00: Orthope 00 dic Hospita l adhesive DA Active MO RASHES, [facility] tape IRRITATION. 02-12 [place] 00:00: Orthope 00 dic Hospita l nickel DA Active MO "RASHES WITH [facility] NICKEL [place] Orthope 00 dic Hospita l ALLERG Allergy Active Lizabeth EXT-PENI to 08-09 Orthope CILLIUM substanc 00:00: dic NOTATUM e 00 Sports Medicin e CECLOR Allergy Active Lizabeth to 08-09 Orthope substanc 00:00: dic e 00 Sports Medicin e Social History Social Habit Start Date Stop Date Quantity Comments Source [facility] Social 2022-09-22 2022-09-[address] function 00:00:00 00:00:00 Hospital Alcohol intake 2020-06-06 2020-06-06 Lifetime Catholic 00:00:00 00:00:00 non-drinker Hospital (finding) Tobacco use and 2020-06-01 2020-06-01 Smokeless [facility] exposure 00:00:00 00:00:00 tobacco non-user Hospital Sex Assigned At [birth year] [facility] 00:00:00 00:00:00 Hospital Smoking Status Start Date Stop Date Source Never smoked tobacco [facility] Medications Ordered Filled Start Stop Current Ordering Indication Dosage Frequency Signature Comments Components Source Medication Medication Date Date Medication? Clinician (SIG) Name Name triamterene 2019- Yes 1{tbl} QD Take 1 Me thodi -hydrochlor 1-20 tablet by [facility] 19:48: mouth Hospita (MAXZIDE-25 04 daily. l ) 37.5-25 mg per tablet triamterene 2019- Yes 1{tbl} QD Take 1 Me thodi -hydrochlor 1-20 tablet by [facility] 19:48: mouth Hospita (MAXZIDE-25 04 daily. l ) 37.5-25 mg per tablet triamterene 2019- Yes 1{tbl} QD Take 1 Me thodi -hydrochlor 1-20 tablet by [facility] 19:48: mouth Hospita (MAXZIDE-25 04 daily. l ) 37.5-25 mg per tablet triamterene 2019- Yes 1{tbl} QD Take 1 Me thodi -hydrochlor 1-20 tablet by [facility] 19:48: mouth Hospita (MAXZIDE-25 04 daily. l ) 37.5-25 mg per tablet triamterene 2019- Yes 1{tbl} QD Take 1 Me thodi -hydrochlor 1-20 tablet by [facility] 19:48: mouth Hospita (MAXZIDE-25 04 daily. l ) 37.5-25 mg per tablet triamterene 2019- Yes 1{tbl} QD Take 1 Me thodi -hydrochlor 1-20 tablet by [facility] 19:48: mouth Hospita (MAXZIDE-25 04 daily. l ) 37.5-25 mg per tablet Ultram 50 Ultram 50 2014-07 No Ultram 50 Lizabeth mg tablet mg tablet 2-02 mg tablet Orthope take 1 tab take 1 tab 00:00: take 1 tab dic q 4-6 h prn q 4-6 h prn 00 q 4-6 h Sports pain pain prn pain Medicin e albuterol albuterol No albuterol Lizabeth sulfate HFA sulfate HFA sulfate Orthope 90 90 HFA 90 dic mcg/actuati mcg/actuati mcg/actuat Sports on aerosol on aerosol ion Med icin inhaler inhaler aerosol e INHALE 2 INHALE 2 inhaler PUFFS BY PUFFS BY INHALE 2 MOUTH EVERY MOUTH EVERY PUFFS BY 6 HOURS 6 HOURS MOUTH NEEDED NEEDED EVERY 6 HOURS NEEDED azithromyci azithromyci No azithromyc Lizabeth n 250 mg n 250 mg in 250 mg Or thope tablet TAKE tablet TAKE tablet dic 2 TABLETS 2 TABLETS TAKE 2 Spo rts BY MOUTH ON BY MOUTH ON TABLETS BY Medicin DAY 1, THEN DAY 1, THEN MOUTH ON e 1 TABLET 1 TABLET DAY 1, DAILY ON DAILY ON THEN 1 DAYS 2 TO DAYS 2 TO TABLET 5. 5. DAILY ON DAYS 2 TO 5. dexamethaso dexamethaso No dexamethas Lizabeth ne 4 mg ne 4 mg one 4 mg Ortho pe tablet TAKE tablet TAKE tablet dic ONE (1) ONE (1) TAKE ONE Sport s TABLET(S) TABLET(S) (1) Medic in BY MOUTH BY MOUTH TABLET(S) e TWICE A TWICE A BY MOUTH DAY. DAY. TWICE A DAY. epinephrine epinephrine No epinephrin Lizabeth 0.3 mg/0.3 0.3 mg/0.3 e 0.3 Or thope mL mL mg/0.3 mL dic injection, injection, injection, Sports auto-inject auto-inject auto-injec Medicin or USE or USE tor USE e DIRECTED IN DIRECTED IN DIRECTED PACKAGE PACKAGE IN PACKAGE INSERT INSERT INSERT NEEDED. NEEDED. NEEDED. famotidine famotidine No famotidine Liazbeth 20 mg 20 mg 20 mg Orthope tablet TAKE tablet TAKE tablet dic ONE (1) ONE (1) TAKE ONE Sport s TABLET(S) TABLET(S) (1) Medic in BY MOUTH BY MOUTH TABLET(S) e EVERY EVERY BY MOUTH TWELVE TWELVE EVERY HOURS FOR 5 HOURS FOR 5 TWELVE DAYS. DAYS. HOURS FOR 5 DAYS. fluconazole fluconazole No fluconazol Lizabeth 200 mg 200 mg e 200 mg Orthope tablet TAKE tablet TAKE tablet dic ONE (1) ONE (1) TAKE ONE Sport s TABLET(S) TABLET(S) (1) Medic in BY MOUTH BY MOUTH TABLET(S) e ONCE EVERY ONCE EVERY BY MOUTH MORNING. MORNING. ONCE EVERY MORNING. hydroxychlo hydroxychlo No hydroxychl Lizabeth roquine 200 roquine 200 oroquine Orthope mg tablet mg tablet 200 mg dic TAKE ONE TAKE ONE tablet Sport s (1) (1) TAKE ONE Medicin TABLET(S) TABLET(S) (1) e BY MOUTH BY MOUTH TABLET(S) TWICE A TWICE A BY MOUTH DAY. DAY. TWICE A DAY. ipratropium ipratropium No ipratropiu Lizabeth 0.5 0.5 m 0.5 Orthope mg-albutero mg-albutero mg-albuter dic l 3 mg (2.5 l 3 mg (2.5 ol 3 mg Sports mg base)/3 mg base)/3 (2.5 mg Medicin mL mL base)/3 mL e nebulizatio nebulizatio nebulizati n soln n soln on soln INHALE ONE INHALE ONE INHALE ONE (1) VIAL (1) VIAL (1) VIAL VIA VIA VIA NEBULIZER NEBULIZER NEBULIZER EVERY SIX EVERY SIX EVERY SIX HOURS. HOURS. HOURS. ivermectin ivermectin No ivermectin Lizabeth 3 mg tablet 3 mg tablet 3 mg O rthope TAKE FOUR TAKE FOUR tablet dic (4) (4) TAKE FOUR Sports TABLET(S) TABLET(S) (4) Medic in BY MOUTH BY MOUTH TABLET(S) e NOW A NOW A BY MOUTH SINGLE SINGLE NOW A DOSE. DOSE. SINGLE DOSE. methocarbam methocarbam No methocarba Lizabeth ol 750 mg ol 750 mg mol 750 mg Orthope tablet TAKE tablet TAKE tablet dic 1 TABLET BY 1 TABLET BY TAKE 1 Sports MOUTH EVERY MOUTH EVERY TABLET BY Medicin 8 HOURS 8 HOURS MOUTH e EVERY 8 HOURS montelukast montelukast No montelukas Lizabeth 10 mg 10 mg t 10 mg Orthope tablet TAKE tablet TAKE tablet dic ONE (1) ONE (1) TAKE ONE Sport s TABLET(S) TABLET(S) (1) Medic in BY MOUTH BY MOUTH TABLET(S) e EVERY EVERY BY MOUTH MORNING. MORNING. EVERY MORNING. prednisone prednisone No prednisone Lizabeth 10 mg 10 mg 10 mg Orthope tablet TAKE tablet TAKE tablet dic ONE (1) ONE (1) TAKE ONE Sport s TABLET(S) TABLET(S) (1) Medic in BY MOUTH BY MOUTH TABLET(S) e TWICE A TWICE A BY MOUTH DAY. DAY. TWICE A DAY. prednisone prednisone No prednisone Lizabeth 20 mg 20 mg 20 mg Orthope tablet TAKE tablet TAKE tablet dic ONE (1) ONE (1) TAKE ONE Sport s TABLET(S) TABLET(S) (1) Medic in BY MOUTH BY MOUTH TABLET(S) e THREE TIMES THREE TIMES BY MOUTH A DAY. A DAY. THREE TIMES A DAY. Procedures Procedure Date / Time Performed Performing Clinician [facility] XR, knee, 1 or 2 view 2021-12-21 00:00:00 [facility] XR, knee, 1 or 2 view 2021-11-30 00:00:00 [facility] MRI, knee, w/o 2021-11-30 00:00:00 [place] [facility] ped[facility] contrast Sports Medicine Plan of Care Planned Activity Planned Date Details Comments Source Future Scheduled 2023-04-27 Screening for [facility] Test 17:08:11 malignant neoplasm of colon (procedure) [code = 500320631] Future Scheduled 2023-04-27 Screening for [facility] Test 17:08:11 malignant neoplasm of colon (procedure) [code = 801853710] Future Scheduled 2023-04-27 Screening for [facility] Test 17:08:11 malignant neoplasm of colon (procedure) [code = 335816689] Future Scheduled 2023-04-27 COVID-19 VACCINE (#1) [facility] Test 17:08:11 [code = COVID-19 VACCINE (#1)] Future Scheduled 2023-04-27 Hepatitis C screening [facility] Test 17:08:11 (procedure) [code = 034492467] Future Scheduled 2023-04-27 BREAST CANCER [facility] Test 17:08:11 SCREENING [code = BREAST CANCER SCREENING] Future Scheduled 2023-04-27 Screening for [facility] Test 17:08:11 malignant neoplasm of colon (procedure) [code = 072090699] Future Scheduled 2023-04-27 Screening for [facility] Test 17:08:11 malignant neoplasm of colon (procedure) [code = 842706277] Future Scheduled 2023-04-27 SHINGLES VACCINES (1 Met [facility] Test 17:08:11 of 2) [code = SHINGLES VACCINES (1 of 2)] Future Scheduled 2023-04-27 RSV VACCINES > 60 YR [facility] Test 17:08:11 (1 - 1-dose 60+ series) [code = RSV VACCINES > 60 YR (1 - 1-dose 60+ series)] Future Scheduled 2023-04-27 65+ [facility]CCAL [facility] 17:08:11 VACCINE (1 - PCV) [code = 65+ PNEUMOCOCCAL VACCINE (1 - PCV)] Future Scheduled 2023-04-27 INFLUENZA VACCINE (#1) [facility] Test 17:08:11 [code = INFLUENZA VACCINE (#1)] Future Scheduled 2022-07-30 COVID-19 VACCINE (#1) [facility] Test 16:20:14 [code = COVID-19 VACCINE (#1)] Future Scheduled 2022-07-30 Hepatitis C screening [facility] Test 16:20:14 (procedure) [code = 476913654] Future Scheduled 2022-07-30 [facility] Test 16:20:14 SCREENING [code = BREAST CANCER SCREENING] Future Scheduled 2022-07-30 COLONOSCOPY SCREENING [facility] Test 16:20:14 [code = COLONOSCOPY SCREENING] Future Scheduled 2022-07-30 SHINGLES VACCINES (1 Met [facility] Test 16:20:14 of 2) [code = SHINGLES VACCINES (1 of 2)] Future Scheduled 2022-07-30 65+ [facility]AL [facility] Test 16:20:14 VACCINE (1 - PCV) [code = 65+ PNEUMOCOCCAL VACCINE (1 - PCV)] Future Scheduled 2022-07-30 INFLUENZA VACCINE [facility] Test 16:20:14 [code = INFLUENZA VACCINE] Future Scheduled 2022-07-28 COVID-19 VACCINE (#1) [facility] Test 07:05:57 [code = COVID-19 VACCINE (#1)] Future Scheduled 2022-07-28 Hepatitis C screening [facility] Test 07:05:57 (procedure) [code = 513422577] Future Scheduled 2022-07-28 BREAST CANCER [facility] Test 07:05:57 SCREENING [code = BREAST CANCER SCREENING] Future Scheduled 2022-07-28 COLONOSCOPY SCREENING [facility] Test 07:05:57 [code = COLONOSCOPY SCREENING] Future Scheduled 2022-07-28 SHINGLES VACCINES (1 Met [facility] Test 07:05:57 of 2) [code = SHINGLES VACCINES (1 of 2)] Future Scheduled 2022-07-28 65+ [facility]AL [facility] Test 07:05:57 VACCINE (1 - PCV) [code = 65+ PNEUMOCOCCAL VACCINE (1 - PCV)] Future Scheduled 2022-07-28 INFLUENZA VACCINE [facility] Test 07:05:57 [code = INFLUENZA VACCINE] Future Scheduled 2022-07-18 [facility] Test 01:25:48 [code = COLONOSCOPY SCREENING] Future Scheduled 2022-07-18 SHINGLES VACCINES (1 Met [facility] Test 01:25:48 of 2) [code = SHINGLES VACCINES (1 of 2)] Future Scheduled 2022-07-18 65+ [facility]OCOCCAL [facility] Test 01:25:48 VACCINE (1 - PCV) [code = 65+ PNEUMOCOCCAL VACCINE (1 - PCV)] Future Scheduled 2022-07-18 INFLUENZA VACCINE [facility] Test 01:25:48 [code = INFLUENZA VACCINE] Future Scheduled 2022-07-18 COVID-19 VACCINE (#1) [facility] Test 01:25:48 [code = COVID-19 VACCINE (#1)] Future Scheduled 2022-07-18 Hepatitis C screening [facility] Test 01:25:48 (procedure) [code = 508741178] Future Scheduled 2022-07-18 [facility] Test 01:25:48 SCREENING [code = BREAST CANCER SCREENING] Future Scheduled 2022-07-18 COLONOSCOPY SCREENING [facility] Test 01:25:48 [code = COLONOSCOPY SCREENING] Future Scheduled 2022-07-18 SHINGLES VACCINES (1 Met [facility] Test 01:25:48 of 2) [code = SHINGLES VACCINES (1 of 2)] Future Scheduled 2022-07-18 65+ [facility]OCOCCAL [facility] Test 01:25:48 VACCINE (1 - PCV) [code = 65+ PNEUMOCOCCAL VACCINE (1 - PCV)] Future Scheduled 2022-07-18 INFLUENZA VACCINE [facility] Test 01:25:48 [code = INFLUENZA VACCINE] Future Scheduled 2022-07-18 COVID-19 VACCINE (#1) [facility] Test 01:25:48 [code = COVID-19 VACCINE (#1)] Future Scheduled 2022-07-18 Hepatitis C screening [facility] Test 01:25:48 (procedure) [code = 410368707] Future Scheduled 2022-07-18 [facility] Test 01:25:48 SCREENING [code = BREAST CANCER SCREENING] Future Scheduled 2022-07-18 COLONOSCOPY SCREENING Me [facility] Test 01:25:48 [code = COLONOSCOPY SCREENING] Future Scheduled 2022-07-18 SHINGLES VACCINES (1 Met [facility] Test 01:25:48 of 2) [code = SHINGLES VACCINES (1 of 2)] Future Scheduled 2022-07-18 65+ [facility] Test 01:25:48 VACCINE (1 - PCV) [code = 65+ PNEUMOCOCCAL VACCINE (1 - PCV)] Future Scheduled 2022-07-18 INFLUENZA VACCINE [facility] Test 01:25:48 [code = INFLUENZA VACCINE] Future Scheduled 2022-07-18 COVID-19 VACCINE (#1) [facility] Test 01:25:48 [code = COVID-19 VACCINE (#1)] Future Scheduled 2022-07-18 Hepatitis C screening [facility] Test 01:25:48 (procedure) [code = 062504046] Future Scheduled 2022-07-18 BREAST CANCER [facility] Test 01:25:48 SCREENING [code = BREAST CANCER SCREENING] Encounters Start End Encounter Admission Attending Care Care Encounter Source Date/Time Date/Time Type Type Clinicians Facility Department ID 2021-12-22 2021-12-22 Outpatient FOG_Gharbao AOSM AOSM [id number] Lizabeth 00:00:00 00:00:00 [place] [id number] Orth ope dic Sports Medicin e 2021-12-21 2021-12-21 Outpatient FOG_Gharbao AOSM AOSM [id number] Lizabeth 03:04:00 03:04:00 [place] [id number] Orth ope dic Sports Medicin e 2021-12-21 2021-12-21 Wilfred Cr AOSM [place] - Ortho [id number] Lizabeth 00:00:00 00:00:00 MD Surya: Izzy [place] - Orthope [address] FOG_Ofc dic [facility] Spor [facility], [place] [address] , Ph. [phone] 2021-12-21 2021-12-21 Outpatient KRISTAL London [id number] 00:00:00 00:00:00 Wilfred Cr [id number] 2021-12-01 2021-12-01 Outpatient FOG_Gharbao AOSM AOSM [id number] Lizabeth 03:34:00 03:34:00 ui_Idcam_ [id number] Orth ope dic Sports Medicin e 2021-11-30 2021-11-30 Outpatient BERT VerasTO RADI [id number] [facility] 16:09:00 16:09:00 Wilfred 68 [place] [facility] 2021-11-30 2021-11-30 Wilfred S AOSM [place] - Ortho [id number] Lizabeth 00:00:00 00:00:00 MD Surya: [place] - Orthope [address] FOG_Ofc dic [facility] [place], [place] [address] , Ph. [phone] 2020-07-20 2020-07-20 Outpatient GIST, [facility] [id number] [place] 00:00:00 00:00:00 TL [address] 2020-06-03 2020-06-03 Outpatient GIST, [facility] [id number] [place] 00:00:00 00:00:00 TL [address] 2020-06-01 2020-06-01 Outpatient GIST, [facility] [id number] [place] 00:00:00 00:00:00 TL [address] 2020-06-01 2020-06-01 Outpatient GIST, [facility] [id number] [place] 00:00:00 00:00:00 TL [address] 2020-05-19 2020-05-19 Outpatient GIST, [facility] [id number] [place] 00:00:00 00:00:00 TL [address] 2020-05-19 2020-05-19 Outpatient GIST, [facility] [id number] [place] 00:00:00 00:00:[address] TL [address] Results Test Description Test Time Test Comments Results Result [facility] Comments - MRI LW JNT W/O 2021-12-01 [facility] 1955 Sex: F Patient Name: REJI SUTTON Unit No: [id number] EXAMS: CPT CODE: [id number] MRI LW JNT W/[place] [address] TECHNIQUE: Multiplanar, multisequence MRI of the left knee without contrast. COMPARISON: None available. FINDINGS: Menisci: Horizontal tear of the posterior horn and body medial meniscus is present. No lateral meniscal tear is identified. Ligament and tendons: The ACL and PCL are intact. The collateral ligaments are maintained. The extensor mechanism is unremarkable. Cartilage/ bone: A nondisplaced fracture of the inferomedial patella is present (coronal image 9). No other fracture is identified. Moderate medial compartment cartilage degeneration is noted reaching high-grade within the medial femoral condyle weightbearing surface. There is also moderate medial patellar facet cartilage degeneration. Other: A moderate joint effusion is present. Subcutaneous edema is noted anteriorly. A complex fluid collection anterolateral to the patellar tendon measures 3.4 cm, likely a hematoma. IMPRESSION: 1. Nondisplaced patellar fracture. 2. Horizontal tear of the posterior horn and body of the medial meniscus. 3. Probable subcutaneous hematoma anteriorly. at 0615 Reported and signed by: Luis Angel Ayon M.D. CC: Wilfred London MD Technologist: Traci London, RT(R) Transcribed D/ (0615) [facility]I [facility] [address] PHYS: Wilfred Collins MD : 1955 AGE: 66 SEX: F [place], [place] [address] LOC: Y.MRI PHONE #: [phone] EXAM DATE: 11/30/2021 STATUS: DEP CLI FAX #: [phone] RAD #: D/C DT PAGE 1 Signed Report Patient Name: REJI SUTTON Unit No: [id number] EXAMS: CPT CODE: [id number] MRI LW JNT W/[place] [address] (Continued) Orig Print D/T: S: 12/01/2021 (0618) [facility] NAME: REJI SUTTON [address] [facility] PHYS: Wilfred Collins MD : 1955 AGE: 66 SEX: F [place], [place] [address] LOC: Y.MRI PHONE #: [phone] EXAM DATE: 11/30/2021 STATUS: DEP CLI FAX #: [phone] RAD #: D/C DT PAGE 2 Signed Report SARS-CoV-2 (COVID-19) RNA [Presence] in Respiratory sp ecimen by 2020-06-01 22:55:03 AMRITA with probe detection Test Item Value Reference Range Interpretation Comme nts SARS-CoV-2 (COVID-19) RNA [Presence] in Respiratory Not detected No t-Detected specimen by AMRITA with probe detection (test code = 88970-4) [facility] [place]
[2023-05-04 13:13] LABS: Absolute Lymphocytes (CBC) 1.2 K/uL (0.7-4.9); Hematocrit 43.4 % (36.0-45.0); Lymphocytes % 14.7 % (15.3-44.8); MCV 85.4 fL (80-100); MPV 7.9 fL (7.6-11.3); Platelets 310 thou/uL (152-406); RBC Red Blood Cell Count 5.08 M/uL (3.86-4.86)
[2023-05-04 13:31] LABS: Albumin 4.2 g/dL (3.4-5.0); Bilirubin Direct 0.1 mg/dL (0-0.2); Bilirubin Indirect, Calculated 0.3 mg/dL (0.2-0.8); Bilirubin Total 0.4 mg/dL (0.2-1.0); Magnesium 2.4 mg/dL (1.6-2.4); Potassium 3.5 mEq/L (3.5-5.1); Protein, Total 7.6 g/dL (6.4-8.2); Troponin High Sensitivity 7.3 pg/mL (<58.9)
--- NOTE | 2023-05-04 13:45 | RAD REPORT ---
EXAM DESCRIPTION: RADChest Single View05/04/2023 1:10 pm CLINICAL HISTORY: dizzy COMPARISON: Chest Single View dated 07/18/2021; CHEST SINGLE VIEW dated 12/10/2014; CHEST PA AND LAT 2 VIEW dated 10/24/2013; Head Brain Wo Cont dated 05/04/2023 TECHNIQUE: Portable AP view of the chest. FINDINGS: Improving bibasilar opacities. No pneumothorax or effusion. The cardiomediastinal contour s are unremarkable. IMPRESSION: Improving bibasilar opacities.
--- NOTE | 2023-05-04 14:43 | RAD REPORT ---
EXAM DESCRIPTION: CT - Head Brain Wo Cont - 05/04/2023 1:26 pm CLINICAL HISTORY: DIZZINESS COMPARISON: No comparisons TECHNIQUE: Noncontrast head CT images were obtained without IV contrast. Multiplanar reformats were generated and reviewed. All CT scans are performed using dose optimization technique as appropriate and may include automated exposure control or mA/KV adjustment according to patient size. FINDINGS: No intracranial hemorrhage, mass, or edema. Midline structures are unremarkable. Normal ventricular caliber for age. Nix-white matter differentiation is preserved, without evidence of acute infarct. No abnormal extra- axial fluid collections. Mastoid air cells and visualized portions of the paranasal sinuses are clear. No acute bony findings. IMPRESSION: No evidence of an acute intracranial process.
--- NOTE | 2023-05-04 15:37 | RAD REPORT ---
EXAM DESCRIPTION: CT - Head angio - 05/04/2023 3:07 pm CLINICAL HISTORY: DIZZINESS COMPARISON: Head Brain Wo Cont dated 05/04/2023 TECHNIQUE: Axial CT angiography images of the head was performed with multiplanar and maximum intens ity projection reconstructions. Images performed following intravenous administration of 100mL Isovue 370. All CT scans are performed using dose optimization technique as appropriate and may include automated exposure control or mA/KV adjustment according to patient size. FINDINGS: No evidence of large vessel occlusion. Severe focal narrowing of the right ICA communicati ng segment, see series 412, image 103. In a similar location on the left, there is mild narrowing The ICA is patent distal to this, with patent bifurcation. MCAs and ACAs and their proximal branches are patent. Severe focal narrowing of the proximal right [employer] EXEC[employer]IVE, best appreciated on series 410 image 91. M ild multifocal bilateral INS[employer] SALES EXECUTIVE narrowing proximally. Small triangular outpouching fairly from the communicating left JULIAN, sagittal image 101, favored to r epresent a small PCOM infundibulum. No evidence of aneurysm or dissection flap is detected. No vascul ar malformation identified. Antegrade flow is seen in the vertebral arteries. The vertebral arteries are codominant. The visualized dural venous sinuses are grossly patent. IMPRESSION: No evidence of large vessel occlusion. Severe focal narrowing of the right ICA communicating segment. Focal severe narrowing of the proximal right posterior cerebral artery. Findings favor intracranial atherosclerotic changes. Probable left PCOM infundibulum.
--- NOTE | 2023-05-04 15:44 | RAD REPORT ---
EXAM DESCRIPTION: CT - Neck Angio - 05/04/2023 3:08 pm CLINICAL HISTORY: dizzy COMPARISON: Head angio dated 05/04/2023 TECHNIQUE: Axial CT angiography images of the head was performed with multiplanar and maximum intens ity projection reconstructions. Images performed following intravenous administration of 100mL Isovue 370. All CT scans are performed using dose optimization technique as appropriate and may include automated exposure control or mA/KV adjustment according to patient size. Quantification of carotid stenosis, if any, is performed according to NASCET criteria. FINDINGS: A left aortic arch is identified with variant 4 vessel configuration of the great vessels. No significant flow abnormality is seen of the common carotid bilaterally. Mild atherosclerotic calcifications at the carotid bulbs. No significant stenosis is identified invol ving the cervical segments of both internal carotid arteries. Normal flow is seen within both vertebral arteries. IMPRESSION: No significant flow abnormality of the neck vessels is identified. CAROTID STENOSIS REFERENCE USING NASCET CRITERIA: % ICA stenosis = (1 - narrowest ICA diameter/diameter of distal cervical ICA) x 100. Mild - <50% stenosis. Moderate - 50-69% stenosis. Severe - 70-94% stenosis. Near occlusion - 95-99% stenosis. Occluded - 100% stenosis.
[2023-05-04] MEDS ORDERED: cloNIDine HCL 0.1 MG TAB ONE (15:46)
--- NOTE | 2023-05-04 16:03 | EDPHYS ---
Physician Documentation [facility] Name: Hayley Landon Age: 67 yrs Sex: Female : 1955 Arrival Date: 05/04/2023 Time: 12:27 Bed 5 Private MD: Nestor Mcclellan T ED Physician Alonso Arthur HPI: 05/04 14:03 This 67 yrs old Female presents to ER via Ambulatory with complaints of Weakness, kdr Dizziness. Historical: - Allergies: 12:40 PENICILLINS; ll1 12:40 Codeine; ll1 12:40 SHELLFISH; ll1 16:28 Aspirin; ld1 - PMHx: 12:40 Hypertension; ll1 - PSHx: 12:40 back SX-fusion; Appendectomy; ll1 - Immunization history:: Adult Immunizations up to date. - Social history:: Smoking status: Patient denies any tobacco usage or history of. ROS: 16:40 Constitutional: Negative for fever, chills, and weight loss, Eyes: Negative for injury, kdr pain, redness, and discharge, ENT: Negative for injury, pain, and discharge, Neck: Negative for injury, pain, and swelling, Cardiovascular: Negative for chest pain, palpitations, and edema, Respiratory: Negative for shortness of breath, cough, wheezing, and pleuritic chest pain, Abdomen/GI: Negative for abdominal pain, nausea, vomiting, diarrhea, and constipation, Back: Negative for injury and pain, : Negative for injury, bleeding, discharge, and swelling, MS/Extremity: Negative for injury and deformity, Skin: Negative for injury, rash, and discoloration, Psych: Negative for depression, anxiety, suicide ideation, homicidal ideation, and hallucinations, Allergy/Immunology: Negative for hives, rash, and allergies, Endocrine: Negative for neck swelling, polydipsia, polyuria, polyphagia, and marked weight changes, Hematologic/Lymphatic: Negative for swollen nodes, abnormal bleeding, and unusual bruising, 16:40 Neuro: Positive for weakness, Transient right-sided weakness both upper and lower extremity which resolved after period of minutes. Patient was able to walk from her commode to the bed and lay down. Patient otherwise has been asymptomatic in the ED, Exam: 16:40 Constitutional: This is a well developed, well nourished patient who is awake, alert, kdr and in no acute distress. Head/Face: Normocephalic, atraumatic. Eyes: Pupils equal round and reactive to light, extra-ocular motions intact. Lids and lashes normal. Conjunctiva and sclera are non-icteric and not injected. Cornea within normal limits. Periorbital areas with no swelling, redness, or edema. Neck: Trachea midline, no thyromegaly or masses palpated, and no cervical lymphadenopathy. Supple, full range of motion without nuchal rigidity, or vertebral point tenderness. No Meningismus. Chest/axilla: Normal chest wall appearance and motion. Nontender with no deformity. No lesions are appreciated. Cardiovascular: Regular rate and rhythm with a normal S1 and S2. No gallops, murmurs, or rubs. Normal PMI, no JVD. No pulse deficits. Respiratory: Lungs have equal breath sounds bilaterally, clear to auscultation and percussion. No rales, rhonchi or wheezes noted. No increased work of breathing, no retractions or nasal flaring. Abdomen/GI: Soft, non-tender, with normal bowel sounds. No distension or tympany. No guarding or rebound. No evidence of tenderness throughout. Back: No spinal tenderness. No costovertebral tenderness. Full range of motion. Skin: Warm, dry with normal turgor. Normal color with no rashes, no lesions, and no evidence of cellulitis. MS/ Extremity: Pulses equal, no cyanosis. Neurovascular intact. Full, normal range of motion. Neuro: Awake and alert, GCS 15, oriented to person, place, time, and situation. Cranial nerves II-XII grossly intact. Motor strength 5/5 in all extremities. Sensory grossly intact. Cerebellar exam normal. Normal gait. Psych: Awake, alert, with orientation to person, place and time. Behavior, mood, and affect are within normal limits. Vital Signs: 12:40 BP 188 / 83; Pulse 85; Resp 16; Temp 98.4; Pulse Ox 100% ; Weight 65.32 kg; Height 5 ll1 ft. 2 in. ; Pain 0/10; 13:26 BP 195 / 89; Pulse 77; Resp 18; Pulse Ox 100% on R/A; ld1 14:46 BP 172 / 77; Pulse 70; Resp 18; Pulse Ox 99% on R/A; ld1 15:21 BP 199 / 94; Pulse 76; ld1 15:23 BP 210 / 84; Pulse 77; ld1 15:39 BP 202 / 93; ld1 16:00 BP 208 / 75; Pulse 69; Resp 18; Pulse Ox 100% on R/A; Pain 0/10; ld1 16:22 BP 159 / 72; ld1 16:47 BP 132 / 70; Pulse 51; Resp 18; Pulse Ox 96% on R/A; ld1 16:56 BP 159 / 72; Pulse 62; Resp 18; Pulse Ox 98% on R/A; ld1 17:06 BP 175 / 87; Pulse 67; Resp 18; Pulse Ox 100% on R/A; ld1 12:40 Body Mass Index 26.34 (65.32 kg, 157.48 cm) ll1 12:40 Pain Scale: Adult ll1 16:00 Pain Scale: Adult ld1 NIH Stroke Scale Scores: 13:26 NIHSS Score: 0 ld1 MDM: 16:02 Patient medically screened. kdr 16:19 Data reviewed: vital signs, nurses notes. ED course: Blood pressure had increased after kdr clonidine to 210 at which time gave low dose of Lopressor. 16:40 ED course: Patient continues to be stable in the ED at this time. Patient is resting kdr comfortably in her room on her cell phone. I informed the patient that we wanted to elevate her pressure to allow for permissive hypertension. We would be having a 500 cc bolus to bring blood pressure back up. We will continue to monitor and manage. Patient is without complaints at this time.. 05/04 12:52 Order name: Basic Metabolic Panel; Complete Time: 13:58 kdr 05/04 12:52 Order name: CBC with Diff; Complete Time: 13:58 kdr 05/04 12:52 Order name: D-Dimer; Complete Time: 13:58 kdr 05/04 12:52 Order name: LFT's; Complete Time: 13:58 kdr 05/04 12:52 Order name: Magnesium; Complete Time: 13:58 kdr 05/04 12:52 Order name: NT PRO-BNP; Complete Time: 13:58 kdr 05/04 12:52 Order name: Troponin HS; Complete Time: 13:58 kdr 05/04 12:52 Order name: XRAY Chest (1 view); Complete Time: 13:58 kdr 05/04 12:53 Order name: CT Head Brain wo Cont; Complete Time: 15:43 kdr 05/04 14:11 Order name: CT Head Angio; Complete Time: 16:03 kdr 05/04 14:11 Order name: CT Neck Angio; Complete Time: 16:03 kdr 05/04 12:52 Order name: EKG; Complete Time: 12:53 kdr 05/04 12:52 Order name: Cardiac monitoring; Complete Time: 13:26 kdr 05/04 12:52 Order name: EKG - Nurse/Tech; Complete Time: 13:26 kdr 05/04 12:52 Order name: IV Saline Lock; Complete Time: 12:58 kdr 05/04 12:52 Order name: Labs collected and sent; Complete Time: 13:26 kdr 05/04 12:52 Order name: O2 Per Protocol; Complete Time: 12:55 kdr 05/04 12:52 Order name: O2 Sat Monitoring; Complete Time: 12:55 kdr Administered Medications: 15:37 Drug: cloNIDine PO 0.2 mg PO once; Verbal order per Dr. Arthur Route: PO; ld1 15:59 Drug: Metoprolol IVP 5 mg IVP once; Hold for SBP <100 or HR <60. Verbal order per Dr. luzma Arthur Route: IVP; Site: right antecubital; 16:28 Not Given (pt reports allergy to aspirinn): [id number] mg PO once ld1 16:47 Drug: NS 0.9% IV 500 ml IV at bolus once Route: IV; Rate: bolus; Site: right ld1 antecubital; 16:56 Follow up: Response: No adverse reaction ld1 16:55 Drug: NS 0.9% IV 500 ml IV at bolus once {Note: Applied pressure bag per ERP orders .} ld1 Route: IV; Rate: bolus; Site: right antecubital; Disposition Summary: 05/04/23 16:02 Transfer Ordered Notes: Transfer Location: [facility] kdr Reason: Higher level of care kdr Condition: Fair kdr Problem: new kdr Symptoms: have improved kdr Accepting Physician: pearl(05/04/23 17:07) ld1 Diagnosis - Dizziness and giddiness kdr Forms: - Medication Reconciliation Form kdr - SBAR form kdr NIH Stroke Scale - NIH Stroke Score Date: 05/04/2023 Time: 13:26 Total Score = 0 10. Dysarthria (speech clarity - read or repeat words) - 0(Normal) 11. Extinction and Inattention (visual/tactile/auditory/spatial/personal) - 0(No abnormality) 1a. Level of Consciousness (LOC) - 0(Alert) 1b. Level of Consciousness (LOC) (Month \T\ Age) - 0(Both) 1c. LOC Commands (Open \T\ Closes Eyes/Quality Specialist) - 0(Both) 2. Best Gaze (Lateral Gaze Paresis) - 0(Normal) 3. Visual Field Loss - 0(No visual loss) 4. Facial Palsy - 0(Normal) 5a. Left Arm: Motor (10-second hold) - 0(No drift) 5b. Right Arm: Motor (10-second hold) - 0(No drift) 6a. Left Leg: Motor (5-second hold - always test supine) - 0(No drift) 6b. Right Leg: Motor (5-second hold - always test supine) - 0(No drift) 7. Limb Ataxia (finger/nose \T\ heel/rivera - test with eyes open) - 0(Absent) 8. Sensory Loss (pinprick arms/legs/face) - 0(Normal) 9. Best Language: Aphasia (description/naming/reading) - 0(No aphasia) Initials: ld1 Signatures: Dispatcher [employer] EDAlonso Milligan MD MD kdr Brittany Mai RN RN ll1 Miladis Urbina RN RN ld1 Corrections: (The following items were deleted from the chart) 17:07 16:02 ml;' kdr ld1
--- NOTE | 2023-05-04 16:03 | ER ---
Nurse's Notes [facility] Name: Hayley Landon Age: 67 yrs Sex: Female : 1955 Arrival Date: 05/04/2023 Time: 12:27 Bed 5 Private MD: Nestor Mcclellan T Diagnosis: Dizziness and giddiness Presentation: 05/04 12:40 Chief complaint: Patient states: 11 AM felt dizzy, weak, sweaty, trouble speaking, R ll1 arm and leg feeling heavy and not moving correctly. Has now resolved. Coronavirus screen: Vaccine status: Patient reports receiving the 2nd dose of the covid vaccine. Client denies travel out of the [place] in the last 14 days. At this time, the client does not indicate any symptoms associated with coronavirus-19. Ebola Screen: Patient denies travel to an Ebola-affected area in the 21 days before illness onset. No acute neurological deficit is noted. Initial Sepsis Screen: Does the patient meet any 2 criteria? No. Patient's initial sepsis screen is negative. Does the patient have a suspected source of infection? No. Patient's initial sepsis screen is negative. Risk Assessment: Do you want to hurt yourself or someone else? Patient reports no desire to harm self or others. Onset of symptoms was May 04, 2023. 12:40 Method Of Arrival: Ambulatory ll1 12:40 Acuity: OCTAVIA 2 ll1 Stroke Activation: Symptom onset < 3 hours Physician: Stroke Attending; Name: ; Notified At: ; Arrived At: Physician: Chief Stroke Resident; Name: ; Notified At: ; Arrived At: Physician: Stroke Resident; Name: ; Notified At: ; Arrived At: Physician: ED Attending; Name: ; Notified At: ; Arrived At: Physician: ED Resident; Name: ; Notified At: ; Arrived At: Historical: - Allergies: 12:40 PENICILLINS; ll1 12:40 Codeine; ll1 12:40 SHELLFISH; ll1 16:28 Aspirin; ld1 - PMHx: 12:40 Hypertension; ll1 - PSHx: 12:40 back SX-fusion; Appendectomy; ll1 - Immunization history:: Adult Immunizations up to date. - Social history:: Smoking status: Patient denies any tobacco usage or history of. Screenin:26 [facility] ED Fall Risk Assessment (Adult) History of falling in the last 3 months, ld1 including since admission No falls in past 3 months (0 pts). Abuse screen: Denies threats or abuse. Denies injuries from another. Nutritional screening: No deficits noted. Tuberculosis screening: No symptoms or risk factors identified. Assessment: 13:26 VAN Scoring: Arm Drift: Patients demonstrates NO arm weakness. Patient is VAN Negative. ld1 General: Appears in no apparent distress. comfortable, Behavior is calm, cooperative, appropriate for age. Pain: Denies pain. Neuro: Level of Consciousness is awake, alert, obeys commands, Oriented to person, place, time, situation. Neuro: Reports dizziness, weakness. Cardiovascular: Capillary refill < 3 seconds Patient's skin is warm and dry. Respiratory: Airway is patent Respiratory effort is even, unlabored. GI: Abdomen is flat, non-distended. : No signs and/or symptoms were reported regarding the genitourinary system. EENT: No signs and/or symptoms were reported regarding the EENT system. Derm: No signs and/or symptoms reported regarding the dermatologic system. Musculoskeletal: No signs and/or symptoms reported regarding the musculoskeletal system. 14:45 Reassessment: Patient appears in no apparent distress at this time. No changes from ld1 previously documented assessment. Patient and/or family updated on plan of care and expected duration. Pain level reassessed. 15:25 Reassessment: Notified ERP of High blood pressure. ld1 17:06 TNKase (Tenecteplase) Screening:. Reassessment: Patient appears in no apparent distress ld1 at this time. No changes from previously documented assessment. Patient and/or family updated on plan of care and expected duration. Pain level reassessed. Patient denies pain at this time. Patient states symptoms have improved. Vital Signs: 12:40 BP 188 / 83; Pulse 85; Resp 16; Temp 98.4; Pulse Ox 100% ; Weight 65.32 kg; Height 5 ll1 ft. 2 in. ; Pain 0/10; 13:26 BP 195 / 89; Pulse 77; Resp 18; Pulse Ox 100% on R/A; ld1 14:46 BP 172 / 77; Pulse 70; Resp 18; Pulse Ox 99% on R/A; ld1 15:21 BP 199 / 94; Pulse 76; ld1 15:23 BP 210 / 84; Pulse 77; ld1 15:39 BP 202 / 93; ld1 16:00 BP 208 / 75; Pulse 69; Resp 18; Pulse Ox 100% on R/A; Pain 0/10; ld1 16:22 BP 159 / 72; ld1 16:47 BP 132 / 70; Pulse 51; Resp 18; Pulse Ox 96% on R/A; ld1 16:56 BP 159 / 72; Pulse 62; Resp 18; Pulse Ox 98% on R/A; ld1 17:06 BP 175 / 87; Pulse 67; Resp 18; Pulse Ox 100% on R/A; ld1 12:40 Body Mass Index 26.34 (65.32 kg, 157.48 cm) ll1 12:40 Pain Scale: Adult ll1 16:00 Pain Scale: Adult ld1 NIH Stroke Scale Scores: 13:26 NIHSS Score: 0 ld1 ED Course: 12:30 Patient arrived in ED. mr 12:30 Nestor Mcclellan MD is Private Physician. mr 12:35 Alonso Arthur MD is Attending Physician. kdr 12:39 Notified ED physician of other S/S ONSET 11 am. ll1 12:40 Arm band placed on Patient placed in an exam room, on a stretcher. ll1 12:42 Triage completed. ll1 12:45 Jocelyn Romero, RN is Primary Nurse. me1 13:12 XRAY Chest (1 view) In Process Unspecified. EDMS 13:26 Miladis Urbina, ISABELLA is Primary Nurse. ld1 13:26 Patient has correct armband on for positive identification. Placed in gown. Bed in low ld1 position. Call light in reach. Side rails up X2. air sampling and monitoring on. Pulse ox on. NIBP on. Door closed. Noise minimized. Warm blanket given. 13:26 No provider procedures requiring assistance completed. Inserted saline lock: 20 gauge ld1 in right antecubital area, using aseptic technique. Blood collected. 13:28 CT Head Brain wo Cont In Process Unspecified. EDMS 13:39 EKG done, by ED staff. sm8 15:09 CT Head Angio In Process Unspecified. EDMS 15:10 CT Neck Angio In Process Unspecified. EDMS 16:20 Administrative approval to [facility] 11 tower RM [id number] by LAURA King, transfer ll1 coordinator. Accepting physician Dr. Aidan Velarde at 1615. 16:31 EMS has no trucks available for transfer. [facility] ambulance contacted, eta 20 minutes. ll1 17:07 Patient transferred, IV remains in place. ld1 Administered Medications: 15:37 Drug: cloNIDine PO 0.2 mg PO once; Verbal order per Dr. Arthur Route: PO; ld1 15:59 Drug: Metoprolol IVP 5 mg IVP once; Hold for SBP <100 or HR <60. Verbal order per Dr. luzma Arthur Route: IVP; Site: right antecubital; 16:28 Not Given (pt reports allergy to aspirinn): mg PO once ld1 16:47 Drug: NS 0.9% IV 500 ml IV at bolus once Route: IV; Rate: bolus; Site: right ld1 antecubital; 16:56 Follow up: Response: No adverse reaction ld1 16:55 Drug: NS 0.9% IV 500 ml IV at bolus once {Note: Applied pressure bag per ERP orders .} ld1 Route: IV; Rate: bolus; Site: right antecubital; Medication: 13:26 VIS not applicable for this client. ld1 Outcome: 16:02 ER care complete, transfer ordered by MD. mccauley 17:06 Transferred by ground EMS to [facility], [facility] [place], ld1 17:06 Condition: stable 17:06 Instructed on the need for transfer, 17:07 Patient left the ED. ld1 NIH Stroke Scale - NIH Stroke Score Date: 05/04/2023 Time: 13:26 Total Score = 0 10. Dysarthria (speech clarity - read or repeat words) - 0(Normal) 11. Extinction and Inattention (visual/tactile/auditory/spatial/personal) - 0(No abnormality) 1a. Level of Consciousness (LOC) - 0(Alert) 1b. Level of Consciousness (LOC) (Month \T\ Age) - 0(Both) 1c. LOC Commands (Open \T\ Closes Eyes/Purchasing Officer) - 0(Both) 2. Best Gaze (Lateral Gaze Paresis) - 0(Normal) 3. Visual Field Loss - 0(No visual loss) 4. Facial Palsy - 0(Normal) 5a. Left Arm: Motor (10-second hold) - 0(No drift) 5b. Right Arm: Motor (10-second hold) - 0(No drift) 6a. Left Leg: Motor (5-second hold - always test supine) - 0(No drift) 6b. Right Leg: Motor (5-second hold - always test supine) - 0(No drift) 7. Limb Ataxia (finger/nose \T\ heel/rivera - test with eyes open) - 0(Absent) 8. Sensory Loss (pinprick arms/legs/face) - 0(Normal) 9. Best Language: Aphasia (description/naming/reading) - 0(No aphasia) Initials: ld1 Signatures: Dispatcher [employer] EDMS Alonso Arthur MD MD [facility] Clarke, Aby, Reg Reg mr Brittany Mai RN RN ll1 Miladis Urbina RN RN ld1 Chacha Diop 8 Jocelyn Romero RN RN me1 Corrections: (The following items were deleted from the chart) 15:40 15:38 Reassessment: Notified ERP of High blood pressure. ld1 ld1
[2023-05-04] MEDS ORDERED: METOPROLOL TARTRATE 5 MG/5 ML INJ IV ONE (16:11)
[2023-05-04] MEDS ORDERED: ASPIRIN 325 MG TAB ONE (16:41)
[2023-05-04] MEDS ORDERED: NA CHLORIDE 0.9% 500 ML ONE ×2 (16:58→17:05)
--- NOTE | 2023-05-05 13:51 | EKG ---
Test Date: 2023-05-04 Test Time: 13:33:34 Distribution Center Administrator: KATHY MEASUREMENT RESULTS: Intervals: Rate: 71 IL: 138 QRSD: 92 QT: 416 QTc: 452 [place]: P: 36 IL: 138 QRS: 55 T: 53 INTERPRETIVE STATEMENTS: Normal sinus rhythm Nonspecific ST abnormality Abnormal ECG Compared to ECG 07/18/2021 12:14:31 Atrial premature complex(es) no longer present ST (T wave) deviation still present Electronically Signed On 05-05-23 13:50:05 CDT by Clemente Andre
== END 2023-05-04 17:07 | disposition short-term general hospital (02) ==
LOC: ER 12:27
DX: R42 Dizziness and giddiness (principal); R53.1 Weakness; I10 Essential (primary) hypertension; Z88.0 Allergy status to penicillin; Z88.5 Allergy status to narcotic agent; Z88.6 Allergy status to analgesic agent; Z91.013 Allergy to seafood
CPT/HCPCS: 93005; 85025; 80048; 36415; 83735; 85379; 80076; 84484; 83880; 70450; 70496; 70498; 71045; 96374; 99285; Q9967; J7040 ×2